=== PATIENT | male | born 1970 | race Caucasian/White ===

== ENCOUNTER 2021-01-19 13:25 | Emergency (ER) | payer OTHER ==
[~2021-01-19] VITALS: Ht 175.3 cm; Wt 75.7 kg
--- NOTE | 2021-01-19 13:40 | NUR ---
THE PATIENT IS BIBRA 62 FROM HOME C/O ABDOMINAL PAIN AND VOMITING X 2 DAYS. THE PATIENT C/O NAUSEA AT THIS TIME. DR WILHELM IS AWARE. PATIENT IS ALERT AND ORIENTED X4. DENIES SOB. RESPIRATION REGULAR AND UNLABORED. WARM BLANKET PROVIDED. WILL CONTINUE TO MONITOR.
[2021-01-19] MEDS ORDERED: ONDANSETRON HCL/PF - ER 4 MG/2 ML VIAL IV ONE (14:00)
[2021-01-19] MEDS ORDERED: ONDANSETRON HCL/PF 4 MG/2 ML VIAL ONE ×2 (14:01→14:35)
[2021-01-19] MEDS ORDERED: IV NS 0.9% 1,000 ML BAG IV ONE (14:30)
[2021-01-19] MEDS ORDERED: ONDANSETRON HCL/PF 4 MG/2 ML VIAL IVP ONE (14:30)
[2021-01-19] MEDS ORDERED: MORPHINE SULFATE INJ 2 MG/ML DISP.SYRIN IV ONE ×3 (14:30→16:00)
[2021-01-19] MEDS ORDERED: MORPHINE SULFATE INJ 4 MG/ML DISP.SYRIN ONE ×2 (14:35→15:44)
[2021-01-19 14:39] LABS: BASOPHILS % (AUTO) 0.5 % (0.0-2.0); EOSINOPHILS % (AUTO) 0.1 % (0.0-6.0); HEMATOCRIT 44 % (39-51); HEMOGLOBIN 14.9 g/dL (13.5-17.5); LYMPHOCYTES # (AUTO) 0.7 /CMM (0.8-4.8); LYMPHOCYTES % (AUTO) 8.4 % (20.0-44.0); MEAN CORPUSCULAR HGB CONC 34 g/dl (31.0-36.0); MEAN CORPUSCULAR VOLUME 95 fL (80-96); MONOCYTES # (AUTO) 0.3 /CMM (0.1-1.30); MONOCYTES % (AUTO) 3.5 % (2.0-12.0); NEUTROPHILS # (AUTO) 7.5 /CMM (1.8-8.9); NEUTROPHILS % (AUTO) 87.5 % (43.0-81.0); PLATELET COUNT (AUTO) 194 /CMM (150-450); RED BLOOD CELL COUNT(AUTO) 4.59 MIL/uL (4.5-6.0); WHITE BLOOD COUNT (AUTO) 8.5 K/uL (4.3-11.0)
[2021-01-19 14:51] LABS: ALANINE AMINOTRANSFERASE 22 U/L (12-78); ALBUMIN 4.2 g/dL (3.4-5.0); ALKALINE PHOSPHATASE 106 U/L (46-116); ASPARTATE AMINOTRANSFERASE 13 U/L (15-37); BILIRUBIN,DIRECT 0.1 mg/dL (0.0-0.2); BILIRUBIN,TOTAL 0.3 mg/dL (0.2-1.0); CALCIUM, SERUM 9.4 mg/dL (8.5-10.1); CARBON DIOXIDE 23 mmol/L (21-32); CHLORIDE 103 mmol/L (98-107); CREATININE 1.2 mg/dL (0.6-1.3); GLUCOSE 153 mg/dL (74-106); LIPASE 87 U/L (73-393); POTASSIUM 4.3 mmol/L (3.5-5.1); SODIUM SERUM 141 mmol/L (136-145); TOTAL PROTEIN, SERUM 7.6 g/dL (6.4-8.2); UREA NITROGEN, BLOOD 16 mg/dL (7-18)
[2021-01-19] MEDS ORDERED: IOHEXOL-300 100 ML VIAL IV ONE (15:04)
--- NOTE | 2021-01-19 15:04 | NUR ---
BERNABE RATED RIGHT LOWER ABDOMINAL PAIN 4/10 AFTER GIVING ORDERED MORPHINE IV PUSH AND THE PATIENT STATED THAT THE MEDICATION WAS EFFECTIVE. WILL CONTINUE TO MONITOR THE PATIENT.
[2021-01-19] MEDS ORDERED: IV NS 0.9% 250 ML IV ONE (15:05)
--- NOTE | 2021-01-19 15:51 | NUR ---
EMERGENCY CONTACT IS SISTER RADHA PATIENT ALLOWED TO SHARE INFORMATION WITH RADHA
[2021-01-19] MEDS ORDERED: KETOROLAC TROMETHAMINE INJ 30 MG/ML VIAL IV ONE (16:00)
[2021-01-19] MEDS ORDERED: TAMS-12 PO (16:01)
[2021-01-19] MEDS ORDERED: IBUP-1957 PO (16:01)
--- NOTE | 2021-01-19 16:10 | NUR ---
MORPHINE 4 MG IV PUSH (2ND ORDER) IS NOT ADMINISTERED DUE TO IT BEING DOUBLE ENTRY. PER MD TO GIVE ONLY ONE DOSE.
[2021-01-19] MEDS ORDERED: KETOROLAC TROMETHAMINE 15 MG/ML VIAL ONE (16:13)
--- NOTE | 2021-01-19 17:29 | NUR ---
Patient discharged to home in stable condition. Written and verbal after care instructions given. Patient verbalizes understanding of instruction. the patient left ER in stable condition.
[2021-01-19 17:30] VITALS: BP 118/76
== END 2021-01-19 17:30 | disposition home or self-care (01) ==
LOC: ER 13:32
DX: N13.2 Hydronephrosis with renal and ureteral calculous obstruction (principal); R11.2 Nausea with vomiting, unspecified; F17.200 Nicotine dependence, unspecified, uncomplicated; Z90.89 Acquired absence of other organs
CPT/HCPCS: 36415; 71045; 74177; 80048; 80076; 83690; 84484; 85025; 96361; 96374; 96375; 96376; 99285; J1885; J2270 ×2; J2405 ×3; J7050; Q9967; J7030